=== PATIENT | female | born 2000 | race Caucasian/White ===

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

== ENCOUNTER 2019-10-19 01:36 | Emergency (ER) | payer OTHER ==
--- NOTE | 2019-10-19 01:43 | ED Physician Documentation ---
History of Present Illness - Stated complaint Stated Complaint: CHILLS/SIDE RASHES - History obtained from History obtained from: Patient - History of Present Illness Timing: Yesterday Pain level now: 0 Improved by: nothing Worsened by: no apparent inciting nor exacerbating factors - Additonal information Additional information: c/o 1-2 days of bilateral axillary pruritic rash which has gradually spread to proximal upper arms.denies h/o similar rash. stopped deodorant today to see if that would help but rash has progressed. 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 : None HEENT: None Psych: None Musculoskeletal: None Derm: None - Past Surgical History Past Surgical History: No - Present Medications Home Medications: Ambulatory Orders Medication Instructions Recorded Confirmed Control 02/02/18 Cyclobenzaprine [Flexeril] 10 mg PO TID PRN #20 tablet 11/23/18 Ibuprofen 600 mg PO Q6HR PRN #14 tablet 11/23/18 Oxycodone HCl/Acetaminophen 1 - 2 each PO Q6H PRN #14 tablet 11/23/18 [Percocet 5-325 mg Tablet] Triamcinolone 0.5% Cream [Kenalog 1 film TOP BID #2 tube 10/19/19 0.5% Cream] Cetirizine [ZyrTEC] 10 mg PO BID #15 tablet 10/20/19 dexAMETHasone [Decadron] 4 mg PO DAILY #5 tablet 10/20/19 - Allergies Allergies/Adverse Reactions: Allergies Allergy/AdvReac Type Severity Reaction Status Date / Time No Known Drug Allergies Allergy Verified 11/22/18 22:51 - Social History Does the pt smoke?: Yes Smoking Status: Current every day smoker Does the pt drink ETOH?: No Does the pt have substance abuse?: No - Immunizations Immunizations are current?: Yes - POLST Patient has POLST: No PD ED PE NORMAL - Vitals Vital signs reviewed: Yes - General General: Alert and oriented X 3, No acute distress, Well developed/nourished - Neck Neck: Supple, no meningeal sign - Respiratory Respiratory: No respiratory distress, Clear bilaterally PD ED PE EXPANDED - Derm Derm: Rash (exanthem bilateral axillae with spread to proximal upper arms and anterior aspects of shoulders. The exanthem is raised, erythematous, dry macules with few areas of coalescence. does not annette) Results - Vitals Vitals: Oxygen O2 Source Room air PD MEDICAL DECISION MAKING - ED course Complexity details: considered differential, d/w patient Departure - Departure Disposition: 01 Home, Self Care Clinical Impression: Exanthem Condition: Good Instructions: ED Erythema Prescriptions: Triamcinolone 0.5% Cream [Kenalog 0.5% Cream] 1 film TOP BID #2 tube Discharge Date/Time: 10/19/19 02:36
[2019-10-19 02:37] VITALS: BP 118/83
== END 2019-10-19 02:36 | disposition home or self-care (01) ==
LOC: ED 01:36
DX: R21 Rash and other nonspecific skin eruption (principal); F17.200 Nicotine dependence, unspecified, uncomplicated
CPT/HCPCS: 99281; 99283

== ENCOUNTER 2019-10-20 14:29 | Emergency (ER) | payer OTHER ==
[2019-10-20] MEDS ORDERED: CHERRY SYRUP 10 ML UDC PO ONE (14:55)
[2019-10-20] MEDS ORDERED: FAMOTIDINE 20 MG TABLET PO STA (14:55)
[2019-10-20] MEDS ORDERED: DEXAMETHASONE 10 MG/ML VIAL PO STA (14:55)
[2019-10-20] MEDS ORDERED: CETIRIZINE 10 MG TABLET PO STA (14:55)
[2019-10-20] MEDS ORDERED: diphenhydrAMINE 25 MG CAPSULE PO STA (14:56)
[2019-10-20 15:19] LABS: RAPID STREP SCREEN Negative (Negative)
--- NOTE | 2019-10-20 15:24 | ED Physician Documentation ---
PD HPI SKIN - Stated complaint Stated Complaint: RASH ON SIDES - Chief complaint Chief Complaint: Wound - History obtained from History obtained from: Patient - History of Present Illness Timing - onset: How many days ago (2) Timing - duration: Days (2) Timing - details: Gradual onset, Still present Quality / character: Itchy, Discolored, Raised. No: Vesicular, Draining Associated symptoms: No: Fever, Myalgias Contributing factors: No: Exposed to medication, Exposed to food, Exposed to soap / lotion, Recent illness Review of Systems Constitutional: denies: Fever, Chills Nose: denies: Rhinorrhea / runny nose, Congestion Throat: reports: Sore throat (mild for a day, without tongue/lip/throat swelling) Respiratory: denies: Dyspnea, Cough GI: denies: Nausea, Vomiting, Diarrhea Skin: reports: Rash (The rash initially was on both armpit areas and was seen here a day and a half ago with prescription for triamcinolone cream topically. Since that time it is progressed to a larger area now on the arms and torso.) Neurologic: denies: Generalized weakness Immunocompromised: denies: Immunocompromised PD PAST MEDICAL HISTORY - Past Medical History Past Medical History: No Cardiovascular: None Respiratory: None Neuro: None Endocrine/Autoimmune: None GI: None ROUNDSMAN: None : None HEENT: None Psych: None Musculoskeletal: None Derm: None - Past Surgical History Past Surgical History: No - Present Medications Home Medications: Ambulatory Orders Medication Instructions Recorded Confirmed Control 02/02/18 Cyclobenzaprine [Flexeril] 10 mg PO TID PRN #20 tablet 11/23/18 Ibuprofen 600 mg PO Q6HR PRN #14 tablet 11/23/18 Oxycodone HCl/Acetaminophen 1 - 2 each PO Q6H PRN #14 tablet 11/23/18 [Percocet 5-325 mg Tablet] Triamcinolone 0.5% Cream [Kenalog 1 film TOP BID #2 tube 10/19/19 0.5% Cream] Cetirizine [ZyrTEC] 10 mg PO BID #15 tablet 10/20/19 dexAMETHasone [Decadron] 4 mg PO DAILY #5 tablet 10/20/19 - Allergies Allergies/Adverse Reactions: Allergies Allergy/AdvReac Type Severity Reaction Status Date / Time No Known Drug Allergies Allergy Verified 05/10/19 22:51 - Social History Does the pt smoke?: Yes Smoking Status: Current every day smoker Does the pt drink ETOH?: No Does the pt have substance abuse?: No - Immunizations Immunizations are current?: Yes - POLST Patient has POLST: No PD ED PE NORMAL - Vitals Vital signs reviewed: Yes - General General: Alert and oriented X 3, No acute distress, Well developed/nourished - HEENT HEENT: No: Pharynx benign (Mild redness of the tonsillar area without exudate. There is no adenopathy noted. No swelling of the uvula tongue or lips.) - Neck Neck: Supple, no meningeal sign, No adenopathy - Cardiac Cardiac: RRR, No murmur - Respiratory Respiratory: Clear bilaterally - Abdomen Abdomen: Soft, Non tender - Derm Derm: Warm and dry, Other (Blotchy raised red spots on the axillary areas onto the upper arms and chest as well as the back on both sides. No vesicles no pustules.) - Neuro Neuro: Alert and oriented X 3, No motor deficit, Normal speech Results - Vitals Vitals: Vital Signs - 24 hr 10/20/19 14:34 Temperature 36.5 C Heart Rate 113 H Respiratory 16 Rate Blood Pressure 137/94 H O2 Saturation 100 Oxygen O2 Source Room air - Labs Labs: Laboratory Tests 10/20/19 14:50 Group A Strep Rapid Negative Departure - Departure Disposition: 01 Home, Self Care Clinical Impression: Allergic dermatitis Condition: Stable Record reviewed to determine appropriate education?: Yes Instructions: ED Urticaria Follow-Up: Dora Brady MD [Primary Care Provider] - Prescriptions: Cetirizine [ZyrTEC] 10 mg PO BID #15 tablet dexAMETHasone [Decadron] 4 mg PO DAILY #5 tablet Comments: Your strep test is negative. This looks like an allergic reaction but not certain of the cause. It is not unusual to not be able to identify the trigger for it and in those cases it commonly disappears with treatment and does not return. Decadron steroid orally for the next 5 more days. Add long-acting antihistamine cetirizine twice daily for a week. To this continue Benadryl 25 to 50 mg every 6 hours if needed for itchiness. He can still use the steroid cream topically in the worst places. Recheck if not resolved over the next 2 to 3 days.
[2019-10-20 15:34] VITALS: BP 130/90
== END 2019-10-20 15:33 | disposition home or self-care (01) ==
LOC: ED 14:29
DX: L23.9 Allergic contact dermatitis, unspecified cause (principal); F17.200 Nicotine dependence, unspecified, uncomplicated
CPT/HCPCS: 87070; 87430; 99283; 99284; A9270